=== PATIENT | female | born 1970 ===

== ENCOUNTER 2023-04-13 07:33 | Day surgery (SDC) | payer MEDICAID ==
[~2023-04-13 07:33] MED LIST: Dextrose 5%-0.45% NaCl 1,000 ML IV SCH
[2023-04-13] MEDS ORDERED: fentaNYL 100 MCG/2 ML SDV ONE (07:42)
[2023-04-13] MEDS ORDERED: Midazolam 1 MG/ML 2 ML SDV IV ONE ×7 (07:42→08:38)
[2023-04-13] MEDS ORDERED: Midazolam 1 MG/ML 2 ML SDV ONE (07:42)
[2023-04-13] MEDS ORDERED: fentaNYL 100 MCG/2 ML SDV IV ONE ×3 (07:42→08:28)
== END 2023-04-13 10:40 | disposition home or self-care (01) ==
LOC: DL.ENDO 07:33
PROVIDERS: ATTEND Internal Medicine Gastroenterology
DX: Z12.11 Encounter for screening for malignant neoplasm of colon (principal); K64.8 Other hemorrhoids; K64.4 Residual hemorrhoidal skin tags; E11.9 Type 2 diabetes mellitus without complications; I25.10 Atherosclerotic heart disease of native coronary artery without angina pectoris; E78.5 Hyperlipidemia, unspecified; I25.5 Ischemic cardiomyopathy; E03.9 Hypothyroidism, unspecified; M79.7 Fibromyalgia; G47.33 Obstructive sleep apnea (adult) (pediatric); E66.09 Other obesity due to excess calories; Z91.041 Radiographic dye allergy status; Z86.718 Personal history of other venous thrombosis and embolism; Z68.38 Body mass index [BMI] 38.0-38.9, adult; Z88.5 Allergy status to narcotic agent
CPT/HCPCS: J2250; J3010; J7042

== ENCOUNTER 2024-08-19 12:40 | Emergency (ER) | payer SELFPAY ==
[2024-08-19 13:04] LABS: BASOPHILS PERCENT AUTO 0.3 % (0.0-1.0); EOSINOPHILS PERCENT AUTO 4.2 % (1.0-3.0); HEMATOCRIT 42.8 % (37.0-47.0); HEMOGLOBIN 13.5 g/dL (12.0-16.0); LYMPHOCYTES PERCENT AUTO 25.1 % (20.5-50.1); MEAN CORPUSCULAR HEMOGLOBIN 28.4 pg (27.0-34.0); MEAN CORPUSCULAR HGB CONC 31.5 g/dL (33.0-35.0); MEAN CORPUSCULAR VOLUME 90.1 fL (80-100); MONOCYTES PERCENT AUTO 8.5 % (2-8); NEUTROPHILS PERCENT AUTO 61.9 % (42.2-75.2); PLATELET COUNT,PLT 229 10^3/uL (150-450); RED BLOOD CELL COUNT 4.75 10^6/uL (4.2-5.4); WHITE BLOOD CELL COUNT,WBC 7.1 10^3/uL (5.0-10.0)
[2024-08-19] MEDS: Aspirin 81 MG Tab.Chew PO ONE (13:09)
[2024-08-19] MEDS: Aspirin 81 MG Tab.Chew ONE (13:10)
[2024-08-19 13:27] LABS: A/G RATIO 0.8; ALANINE AMINOTRANSFERASE,ALT 16 U/L (14-59); ALBUMIN 3.6 g/dL (3.4-5.0); ALKALINE PHOSPHATASE 136 U/L (46-116); ANION GAP 13.5 mEq/L (7-13); ASPARTATE AMNIOTRANSFERASE,AST 16 U/L (15-37); BILIRUBIN TOTAL 0.4 mg/dL (0.2-1.0); BLOOD UREA NITROGEN,BUN 21 mg/dL (7-18); BUN/CREATININE RATIO 20.8 (No establ ref range); CARBON DIOXIDE,CO2 30 mmol/L (21-32); CHLORIDE,CL 103 mmol/L (98-107); CREATININE 1.01 mg/dL (0.55-1.02); GLUCOSE RANDOM 104 mg/dL (70-99); MAGNESIUM 1.8 mg/dL (1.8-2.4); POTASSIUM,K 3.5 mmol/L (3.5-5.1); SODIUM,NA 143 mmol/L (136-145)
[2024-08-19 13:28] LABS: ESTIMATED GFR 65 mL/min (>=60)
[2024-08-19 13:29] LABS: INR 3.5 (0.9-1.2); PROTHROMBIN TIME 33.4 SEC (9.0-12.0); PTT,PARTIAL THROMBOPLSTIN TIME 40.8 SEC (22.0-34.0)
== END 2024-08-19 16:00 | disposition home or self-care (01) ==
LOC: DL.ED 12:40
DX: R07.89 Other chest pain (principal); I25.10 Atherosclerotic heart disease of native coronary artery without angina pectoris; I10 Essential (primary) hypertension; E78.00 Pure hypercholesterolemia, unspecified; E11.9 Type 2 diabetes mellitus without complications; Z95.5 Presence of coronary angioplasty implant and graft; Z88.5 Allergy status to narcotic agent; Z91.041 Radiographic dye allergy status; Z79.82 Long term (current) use of aspirin; Z79.890 Hormone replacement therapy; Z79.01 Long term (current) use of anticoagulants; Z79.899 Other long term (current) drug therapy
CPT/HCPCS: 36415; 71045; 80053; 83735; 84484; 85025; 85610; 85730; 93005; 99285; A9270; 93010; 99284